=== PATIENT | female | born 1965 | race Caucasian/White ===

== ENCOUNTER 2019-06-30 10:25 | Emergency (ER) | payer OTHER ==
[~2019-06-30] VITALS: Ht 162.6 cm; Wt 59.0 kg
--- NOTE | 2019-06-30 10:37 | NUR ---
Pt bibhusband, anxious, nausea, started taking Remeron and Cymbalta . Pt aaox4, vss, breathing even and unlabored on room air w/ nad. Pt connected to the monitor.
[2019-06-30] MEDS ORDERED: LORAZEPAM INJ 2 MG/ML VIAL ONE ×2 (10:51→11:33)
[2019-06-30] MEDS ORDERED: ONDANSETRON 4 MG TAB.RAPDIS ONE (10:52)
[2019-06-30] MEDS ORDERED: ONDANSETRON 4 MG TAB.RAPDIS PO ONE (11:00)
[2019-06-30] MEDS ORDERED: LORAZEPAM INJ 2 MG/ML VIAL IM ONE ×2 (11:00→11:30)
[2019-06-30] MEDS ORDERED: METOCLOPRAMIDE HCL 10 MG/2 ML VIAL IM ONE (11:30)
[2019-06-30] MEDS ORDERED: METOCLOPRAMIDE HCL 10 MG/2 ML VIAL ONE (11:33)
--- NOTE | 2019-06-30 12:22 | NUR ---
Patient discharged to home in stable condition. Written and verbal after care instructions given. Patient verbalizes understanding of instruction.
[2019-06-30 12:23] VITALS: BP 123/81
== END 2019-06-30 12:23 | disposition home or self-care (01) ==
LOC: ER 10:34
DX: F41.9 Anxiety disorder, unspecified (principal); F32.9 Major depressive disorder, single episode, unspecified; Z88.1 Allergy status to other antibiotic agents
CPT/HCPCS: 96372 ×2; 99284; J2060 ×2; J2765; Q0162

== ENCOUNTER 2019-07-11 10:44 | Emergency (ER) | payer OTHER ==
[~2019-07-11] VITALS: Ht 162.6 cm; Wt 59.0 kg
--- NOTE | 2019-07-11 11:00 | NUR ---
PT CAME INTO THE ED C/O ANXIETY EVERY MORNING. PT AAOX4, VSS, BREATHING EVEN AND UNLABORED ON ROOM AIR W/ NAD NOTED. PT CONNECTED TO THE MONITOR AND POX.
--- NOTE | 2019-07-11 11:01 | NUR ---
AWAITING FOR MD AZAR
[2019-07-11] MEDS ORDERED: LORAZEPAM INJ 2 MG/ML VIAL IM ONE (11:30)
[2019-07-11] MEDS ORDERED: LORAZEPAM INJ 2 MG/ML VIAL ONE (11:32)
[2019-07-11 12:35] VITALS: BP 129/81
--- NOTE | 2019-07-11 12:35 | NUR ---
Patient discharged to home in stable condition. Written and verbal after care instructions given. Patient verbalizes understanding of instruction.
== END 2019-07-11 12:35 | disposition home or self-care (01) ==
LOC: ER 10:46
DX: F41.9 Anxiety disorder, unspecified (principal); F32.9 Major depressive disorder, single episode, unspecified; Z88.1 Allergy status to other antibiotic agents
CPT/HCPCS: 96372; 99284; J2060

== ENCOUNTER 2019-07-18 18:39 | Emergency (ER) | payer OTHER ==
[~2019-07-18] VITALS: Ht 162.6 cm; Wt 59.0 kg
[2019-07-18 18:51] VITALS: BP 112/72
[2019-07-18] MEDS ORDERED: LORAZEPAM 1 MG TABLET ONE (19:55)
[2019-07-18] MEDS ORDERED: LORAZEPAM 1 MG TABLET PO ONE (20:00)
--- NOTE | 2019-07-18 20:18 | NUR ---
Patient discharged to home in stable condition. Written and verbal after care instructions given. Patient verbalizes understanding of instruction.
== END 2019-07-18 20:18 | disposition home or self-care (01) ==
LOC: ER 18:40
DX: F41.9 Anxiety disorder, unspecified (principal); F32.9 Major depressive disorder, single episode, unspecified; Z88.1 Allergy status to other antibiotic agents

== ENCOUNTER 2019-07-23 11:02 | Emergency (ER) | payer OTHER ==
[~2019-07-23] VITALS: Ht 162.6 cm; Wt 59.0 kg
[2019-07-23] MEDS ORDERED: LORAZEPAM 1 MG TABLET PO ONE (11:30)
--- NOTE | 2019-07-23 11:30 | NUR ---
anxiety x today, requesting ativan. also c/o nausea, anxious about the job prospect. on room air, breathing evenly and unlabored. connected to the monitor and pulse ox. kept comfortable, will conitnue to monitor accordingly.
[2019-07-23] MEDS ORDERED: LORAZEPAM 1 MG TABLET ONE (11:33)
[2019-07-23 11:35] VITALS: BP 127/71
--- NOTE | 2019-07-23 11:37 | NUR ---
Patient discharged to home in stable condition. Written and verbal after care instructions given. Patient verbalizes understanding of instruction.
== END 2019-07-23 11:37 | disposition home or self-care (01) ==
LOC: ER 11:04
DX: F41.9 Anxiety disorder, unspecified (principal); F32.9 Major depressive disorder, single episode, unspecified; Z88.1 Allergy status to other antibiotic agents; Z60.2 Problems related to living alone

== ENCOUNTER 2019-07-30 12:26 | Emergency (ER) | payer OTHER ==
[~2019-07-30] VITALS: Ht 162.6 cm; Wt 61.2 kg
--- NOTE | 2019-07-30 13:30 | NUR ---
AICHA AHN AT BEDSIDE
[2019-07-30] MEDS ORDERED: LORAZEPAM 1 MG TABLET ONE (13:45)
--- NOTE | 2019-07-30 13:49 | NUR ---
Patient discharged to home in stable condition. Written and verbal after care instructions given. Patient verbalizes understanding of instruction.
[2019-07-30 13:50] VITALS: BP 141/79
[2019-07-30] MEDS ORDERED: LORAZEPAM 1 MG TABLET PO ONE (14:00)
== END 2019-07-30 13:52 | disposition home or self-care (01) ==
LOC: ER 12:27
DX: F41.9 Anxiety disorder, unspecified (principal); F17.200 Nicotine dependence, unspecified, uncomplicated; F32.9 Major depressive disorder, single episode, unspecified; Z76.5 Malingerer [conscious simulation]; Z88.1 Allergy status to other antibiotic agents; Z60.2 Problems related to living alone

== ENCOUNTER 2019-08-10 15:18 | Emergency (ER) | payer OTHER ==
[~2019-08-10] VITALS: Ht 162.6 cm; Wt 59.0 kg
[2019-08-10 16:00] VITALS: BP 112/70
[2019-08-10] MEDS ORDERED: LORAZEPAM 1 MG TABLET ONE (16:16)
[2019-08-10] MEDS ORDERED: LORAZEPAM 1 MG TABLET PO ONE (16:30)
== END 2019-08-10 16:25 | disposition home or self-care (01) ==
LOC: ER 15:23
DX: F41.9 Anxiety disorder, unspecified (principal); F32.9 Major depressive disorder, single episode, unspecified; F17.200 Nicotine dependence, unspecified, uncomplicated; R00.0 Tachycardia, unspecified; Z88.1 Allergy status to other antibiotic agents; Z60.2 Problems related to living alone

== ENCOUNTER 2019-09-06 17:23 | Emergency (ER) | payer OTHER ==
[~2019-09-06] VITALS: Ht 165.1 cm; Wt 54.4 kg
[2019-09-06] MEDS ORDERED: KETOROLAC TROMETHAMINE INJ 30 MG/ML VIAL IV ONE (18:00)
[2019-09-06] MEDS ORDERED: IV NS 0.9% 1,000 ML IV ONE (18:00)
[2019-09-06] MEDS ORDERED: METOCLOPRAMIDE HCL 10 MG/2 ML VIAL IV ONE (18:00)
[2019-09-06] MEDS ORDERED: diphenhydrAMINE HCL 50 MG/ML VIAL IV ONE (18:00)
[2019-09-06] MEDS ORDERED: diphenhydrAMINE HCL 50 MG/ML VIAL ONE (18:10)
[2019-09-06] MEDS ORDERED: KETOROLAC TROMETHAMINE INJ 30 MG/ML VIAL ONE (18:11)
[2019-09-06] MEDS ORDERED: METOCLOPRAMIDE HCL 10 MG/2 ML VIAL ONE (18:11)
--- NOTE | 2019-09-06 18:23 | NUR ---
came in to the er c/o migraine headache x 1 week, on room air breathuing evenly and unlabored, connected to the monitor and pulse ox, kept comfortable will continue to monitor accordingly.
[2019-09-06] MEDS ORDERED: HYDROMORPHONE 1 MG/1 ML DISP.SYRIN ONE (18:59)
[2019-09-06] MEDS ORDERED: HYDROMORPHONE 1 MG/1 ML DISP.SYRIN IV ONE (19:00)
--- NOTE | 2019-09-06 19:09 | NUR ---
report given to Nimo MOLINA for suyapa.
--- NOTE | 2019-09-06 20:10 | NUR ---
IV removed. Catheter intact and site benign. Pressure and 4x4 applied to site. No bleeding noted.Patient discharged to home in stable condition. Written and verbal after care instructions given. Patient verbalizes understanding of instruction. will provide the ride
[2019-09-06 20:14] VITALS: BP 143/78
== END 2019-09-06 20:10 | disposition home or self-care (01) ==
LOC: ER 17:28
DX: G43.909 Migraine, unspecified, not intractable, without status migrainosus (principal); R11.2 Nausea with vomiting, unspecified; F17.200 Nicotine dependence, unspecified, uncomplicated; Z88.1 Allergy status to other antibiotic agents; Z60.2 Problems related to living alone
CPT/HCPCS: 96361; 96374; 96375; 99283; J1170; J1200; J1885; J2765; J7030

== ENCOUNTER 2020-01-15 19:09 | Emergency (ER) | payer SELFPAY ==
[~2020-01-15] VITALS: Ht 162.6 cm; Wt 63.5 kg
[2020-01-15 19:31] VITALS: BP 116/99
--- NOTE | 2020-01-15 19:35 | NUR ---
PA AT BEDSIDE FOR EVAL
[2020-01-15] MEDS ORDERED: LORAZEPAM INJ 2 MG/ML VIAL ONE (19:50)
[2020-01-15] MEDS: LORAZEPAM INJ 2 MG/ML VIAL IM ONE (19:55)
--- NOTE | 2020-01-15 20:31 | NUR ---
Patient discharged to home in stable condition. Written and verbal after care instructions given. Patient verbalizes understanding of instruction. ambulatory with a steady gait
== END 2020-01-15 20:31 | disposition home or self-care (01) ==
LOC: ER 19:33
DX: F41.9 Anxiety disorder, unspecified (principal); F32.9 Major depressive disorder, single episode, unspecified; R00.2 Palpitations; R06.02 Shortness of breath; Z88.1 Allergy status to other antibiotic agents; Z60.2 Problems related to living alone
CPT/HCPCS: 96372; 99283; J2060

== ENCOUNTER 2020-02-13 11:21 | Emergency (ER) | payer OTHER ==
[~2020-02-13] VITALS: Ht 162.6 cm; Wt 74.4 kg
[2020-02-13 11:28] VITALS: BP 121/86
--- NOTE | 2020-02-13 11:30 | NUR ---
AT BEDSIDE FOR EVAL.
== END 2020-02-13 11:44 | disposition home or self-care (01) ==
LOC: ER 11:25
DX: F41.9 Anxiety disorder, unspecified (principal); F32.9 Major depressive disorder, single episode, unspecified; F17.200 Nicotine dependence, unspecified, uncomplicated; Z88.1 Allergy status to other antibiotic agents; Z60.2 Problems related to living alone

== ENCOUNTER 2020-03-20 17:44 | Emergency (ER) | payer OTHER ==
[~2020-03-20] VITALS: Ht 162.6 cm; Wt 68.0 kg
[2020-03-20 17:59] VITALS: BP 119/77
--- NOTE | 2020-03-20 18:31 | NUR ---
Patient discharged to home in stable condition. Written and verbal after care instructions given. Patient verbalizes understanding of instruction.
== END 2020-03-20 18:31 | disposition home or self-care (01) ==
LOC: ER 17:44
DX: J02.9 Acute pharyngitis, unspecified (principal); Z20.828 Contact with and (suspected) exposure to other viral communicable diseases; F41.9 Anxiety disorder, unspecified
CPT/HCPCS: 87070; 87880; 99283; C9803; U0003; 86403-TC

== ENCOUNTER 2020-04-02 12:20 | Emergency (ER) | payer OTHER ==
[~2020-04-02] VITALS: Ht 170.2 cm; Wt 73.0 kg
--- NOTE | 2020-04-02 12:34 | NUR ---
SELF PRESENTS TO ED C/O ANXIETY W/ MIGRAINE EXACERBATION. DENIES CHEST PAIN. NO NEURO DEFICIT NOTTED. STABLE VITALS. AWAITING MD AZAR.
--- NOTE | 2020-04-02 12:36 | NUR ---
DR DUMONT AT BEDSIDE FOR EVAL.
[2020-04-02] MEDS ORDERED: PROCHLORPERAZINE EDISYLATE 10 MG/2 ML VIAL ONE (12:46)
[2020-04-02] MEDS ORDERED: HYDROMORPHONE 1 MG/1 ML DISP.SYRIN ONE (12:46)
[2020-04-02] MEDS ORDERED: LORAZEPAM INJ 2 MG/ML VIAL ONE (12:47)
[2020-04-02] MEDS ORDERED: HYDROMORPHONE INJ 0.5 MG/0.5 ML SYRINGE IV ONE (13:00)
[2020-04-02] MEDS ORDERED: PROCHLORPERAZINE EDISYLATE 10 MG/2 ML VIAL IVP ONE (13:00)
[2020-04-02] MEDS ORDERED: LORAZEPAM INJ 2 MG/ML VIAL IV ONE (13:00)
[2020-04-02] MEDS ORDERED: IV NS 0.9% 1,000 ML IV ONE (13:00)
--- NOTE | 2020-04-02 13:54 | NUR ---
IV removed. Catheter intact and site benign. Pressure and 4x4 applied to site. No bleeding noted.Patient discharged to home in stable condition. Written and verbal after care instructions given. Patient verbalizes understanding of instruction.
[2020-04-02 13:55] VITALS: BP 112/63
== END 2020-04-02 13:55 | disposition home or self-care (01) ==
LOC: ER 12:20
DX: F41.9 Anxiety disorder, unspecified (principal); G43.909 Migraine, unspecified, not intractable, without status migrainosus; F32.9 Major depressive disorder, single episode, unspecified; Z88.1 Allergy status to other antibiotic agents; Z60.2 Problems related to living alone
CPT/HCPCS: 96361; 96374; 96375; 99284; J0780; J1170; J2060; J7030

== ENCOUNTER 2020-06-02 23:29 | Emergency (ER) | payer OTHER ==
[~2020-06-02] VITALS: Ht 162.6 cm; Wt 68.0 kg
[2020-06-02 23:56] VITALS: BP 133/77
--- NOTE | 2020-06-03 00:02 | NUR ---
PT AAOX4. AMBULATORY WITH STEADY GAIT. VSS. BIBS FOR C/O L LOWER TOOTHACHE AND ANXIETY. PLACED ON MONITOR AND PULSE OX,. AWAITING FOR MD FOR EVAL AND ORDERS.
[2020-06-03] MEDS ORDERED: LORAZEPAM 1 MG TABLET PO ONE (01:00)
[2020-06-03] MEDS ORDERED: LORAZEPAM 1 MG TABLET ONE (01:16)
== END 2020-06-03 01:31 | disposition home or self-care (01) ==
LOC: ER 23:29
DX: M27.69 Other endosseous dental implant failure (principal); F41.9 Anxiety disorder, unspecified; F32.9 Major depressive disorder, single episode, unspecified; Z88.1 Allergy status to other antibiotic agents; Z60.2 Problems related to living alone

== ENCOUNTER 2020-07-19 08:35 | Emergency (ER) | payer OTHER ==
[~2020-07-19] VITALS: Ht 162.6 cm; Wt 68.0 kg
[2020-07-19 08:55] VITALS: BP 123/56
[2020-07-19] MEDS ORDERED: LORAZEPAM 1 MG TABLET ONE (09:06)
--- NOTE | 2020-07-19 09:27 | NUR ---
Patient discharged to home in stable condition. Written and verbal after care instructions given. Patient verbalizes understanding of instruction.
[2020-07-19] MEDS ORDERED: LORAZEPAM 1 MG TABLET PO ONE (09:30)
== END 2020-07-19 09:27 | disposition home or self-care (01) ==
LOC: ER 08:38
DX: F41.9 Anxiety disorder, unspecified (principal); F32.9 Major depressive disorder, single episode, unspecified; Z88.1 Allergy status to other antibiotic agents; Z60.2 Problems related to living alone

== ENCOUNTER 2020-09-17 15:33 | Emergency (ER) | payer OTHER ==
[~2020-09-17] VITALS: Ht 162.6 cm; Wt 59.0 kg
--- NOTE | 2020-09-17 15:49 | NUR ---
BIBS FROM HOME TO ER BED 11. AAOX4. TACHYPNEIC. PT IS VERY ANXIOUS AND CRYING. AMBULATORY. CAME IN FOR MID STERNAL CHEST PAIN SINCE 01/19 SHARP NON RADIATING. PT ALSO COMPLAINING OG EPIGASTRIC AND LOWER BACK PAIN. MD AT BEDSIDE FOR EVAL. AWAITING ORDERS
--- NOTE | 2020-09-17 15:54 | NUR ---
DR BRAUN AT BEDSIDE
[2020-09-17] MEDS ORDERED: OLANZAPINE 10 MG VIAL IM ONE ×2 (16:00→16:02)
[2020-09-17 16:14] LABS: BASOPHILS # (AUTO) 0.2 /CMM (0.0-0.2); BASOPHILS % (AUTO) 1.1 % (0.0-2.0); EOSINOPHILS % (AUTO) 0.9 % (0.0-6.0); HEMATOCRIT 39 % (33-45); HEMOGLOBIN 12.5 g/dL (11.5-14.8); LYMPHOCYTES # (AUTO) 3.9 /CMM (0.8-4.8); LYMPHOCYTES % (AUTO) 26.4 % (20.0-44.0); MEAN CORPUSCULAR HGB CONC 32 g/dl (31.0-36.0); MEAN CORPUSCULAR VOLUME 82 fL (82-100); MONOCYTES # (AUTO) 1.1 /CMM (0.1-1.30); MONOCYTES % (AUTO) 7.5 % (2.0-12.0); NEUTROPHILS # (AUTO) 9.4 /CMM (1.8-8.9); NEUTROPHILS % (AUTO) 64.1 % (43.0-81.0); PLATELET COUNT (AUTO) 400 /CMM (150-450); RED BLOOD CELL COUNT(AUTO) 4.72 MIL/uL (4.0-5.2); WHITE BLOOD COUNT (AUTO) 14.6 K/uL (4.3-11.0)
[2020-09-17 16:27] LABS: CALCIUM, SERUM 9.8 mg/dL (8.5-10.1); CARBON DIOXIDE 19 mmol/L (21-32); CHLORIDE 101 mmol/L (98-107); CREATININE 1.1 mg/dL (0.6-1.3); GLUCOSE 97 mg/dL (74-106); POTASSIUM 3.6 mmol/L (3.5-5.1); SODIUM SERUM 138 mmol/L (136-145); UREA NITROGEN, BLOOD 11 mg/dL (7-18)
--- NOTE | 2020-09-17 17:32 | NUR ---
URINE SAMPLE COLLECTED AND SENT TO LAB
[2020-09-17 17:38] LABS: BILIRUBIN,URINE Negative (NEGATIVE); COLOR,URINE YELLOW (YELLOW); LEUKOCYTE ESTERASE ,URINE Negative (NEGATIVE); NITRITE, URINE Negative (NEGATIVE); PROTEIN,URINE Negative (NEGATIVE); UGLUCOSE Negative (NEGATIVE); UROBILINOGEN,URINE 0.2 EU/dL (0.2)
[2020-09-17 17:40] VITALS: BP 112/50
--- NOTE | 2020-09-17 17:40 | NUR ---
Patient discharged to home in stable condition. Written and verbal after care instructions given. Patient verbalizes understanding of instruction.
[2020-09-17 18:14] LABS: BACTERIA,URINE Rare /HPF (None Seen); SQUAMOUS EPITHELIAL CELL,UR Few /HPF (None Seen); WBC,URINE NONE SEEN /HPF (0-3)
== END 2020-09-17 17:42 | disposition home or self-care (01) ==
LOC: ER 15:36
DX: R06.4 Hyperventilation (principal); F41.0 Panic disorder [episodic paroxysmal anxiety]; M54.5 Low back pain; F32.9 Major depressive disorder, single episode, unspecified; R94.31 Abnormal electrocardiogram [ECG] [EKG]; Z88.1 Allergy status to other antibiotic agents; Z60.2 Problems related to living alone
CPT/HCPCS: 36415; 71045; 72131; 80048; 81001; 84484; 85025; 93005; 96372; 99285; J3490

== ENCOUNTER 2020-10-03 15:22 | Emergency (ER) | payer OTHER ==
[~2020-10-03] VITALS: Ht 162.6 cm; Wt 68.0 kg
--- NOTE | 2020-10-03 15:39 | NUR ---
Patient came in to the er c/o "I have anxiety been going on daily. Chest Pain today". On room air, very anxious. Connected to the monitor and pulse ox. kept comfortable, will continue to monitor accordingly.
[2020-10-03] MEDS ORDERED: OLANZAPINE 10 MG VIAL IM ONE ×2 (16:30→16:35)
[2020-10-03 17:45] VITALS: BP 106/59
--- NOTE | 2020-10-03 17:46 | NUR ---
Patient discharged to home in stable condition. Written and verbal after care instructions given. Patient verbalizes understanding of instruction.IV removed. Catheter intact and site benign. Pressure and 4x4 applied to site. No bleeding noted.
== END 2020-10-03 17:45 | disposition home or self-care (01) ==
LOC: ER 15:34
DX: F41.9 Anxiety disorder, unspecified (principal); F32.9 Major depressive disorder, single episode, unspecified; R94.31 Abnormal electrocardiogram [ECG] [EKG]; F17.200 Nicotine dependence, unspecified, uncomplicated; Z88.1 Allergy status to other antibiotic agents; Z60.2 Problems related to living alone
CPT/HCPCS: 93005; 96372; 99283; J3490

== ENCOUNTER 2021-04-03 18:59 | Emergency (ER) | payer OTHER ==
[~2021-04-03] VITALS: Ht 162.6 cm; Wt 67.6 kg
[2021-04-03 19:19] VITALS: BP 100/49
--- NOTE | 2021-04-03 20:33 | NUR ---
CALLED PT TO THE ROOM. NO ANSWER
--- NOTE | 2021-04-03 20:34 | NUR ---
PT LEFT WITHOUT BEING SEEB. MADE AWARE
== END 2021-04-03 20:36 | disposition left against medical advice (07) ==
LOC: ER 19:02
DX: Z53.21 Procedure and treatment not carried out due to patient leaving prior to being seen by health care provider (principal); F41.9 Anxiety disorder, unspecified; F32.9 Major depressive disorder, single episode, unspecified

== ENCOUNTER 2021-04-30 16:03 | Emergency (ER) | payer OTHER ==
[~2021-04-30] VITALS: Ht 162.6 cm; Wt 65.8 kg
--- NOTE | 2021-04-30 16:46 | NUR ---
The patient bibs for feeling anxious and heart palpating. Denies pain. In room air and denies SOB. Respiration regular and unlabored. Attached to the monitor. Warm blanket provided for comfort. Will continue to monitor the patient.
--- NOTE | 2021-04-30 16:47 | NUR ---
Dr Lloyd at the bedside.
[2021-04-30] MEDS ORDERED: LORAZEPAM 1 MG TABLET ONE (17:00)
[2021-04-30] MEDS ORDERED: LORAZEPAM 1 MG TABLET PO ONE (17:00)
--- NOTE | 2021-04-30 17:02 | NUR ---
X-RAY TECH AT THE BEDSIDE
[2021-04-30 17:10] LABS: BASOPHILS # (AUTO) 0.1 K/uL (0.0-0.2); BASOPHILS % (AUTO) 0.8 % (0.0-2.0); EOSINOPHILS % (AUTO) 0.4 % (0.0-6.0); HEMATOCRIT 37 % (33-45); HEMOGLOBIN 12.1 g/dL (11.5-14.8); LYMPHOCYTES % (AUTO) 20.8 % (20.0-44.0); MEAN CORPUSCULAR HGB CONC 33 g/dl (31.0-36.0); MEAN CORPUSCULAR VOLUME 83 fL (82-100); MONOCYTES # (AUTO) 0.7 K/uL (0.1-1.30); MONOCYTES % (AUTO) 6.9 % (2.0-12.0); NEUTROPHILS # (AUTO) 6.9 K/uL (1.8-8.9); NEUTROPHILS % (AUTO) 71.1 % (43.0-81.0); PLATELET COUNT (AUTO) 307 K/uL (150-450); RED BLOOD CELL COUNT(AUTO) 4.46 MIL/uL (4.0-5.2); WHITE BLOOD COUNT (AUTO) 9.8 K/uL (4.3-11.0)
[2021-04-30 17:18] LABS: CALCIUM, SERUM 9.1 mg/dL (8.5-10.1); CARBON DIOXIDE 27 mmol/L (21-32); CHLORIDE 107 mmol/L (98-107); CREATININE 0.9 mg/dL (0.6-1.3); GLUCOSE 86 mg/dL (74-106); POTASSIUM 3.3 mmol/L (3.5-5.1); SODIUM SERUM 145 mmol/L (136-145); UREA NITROGEN, BLOOD 16 mg/dL (7-18)
--- NOTE | 2021-04-30 17:47 | NUR ---
Patient does not wish to proceed with medical care recommended by Dr. Lloyd. Patient given information related to possible complications, up to and including , which could occur as a result of leaving the hospital at this time. Patient verbalizes understanding of risks involved due to leaving against medical advice. Patient has signed AMA form.
[2021-04-30 17:48] VITALS: BP 120/67
== END 2021-04-30 17:49 | disposition left against medical advice (07) ==
LOC: ER 16:08
DX: F41.9 Anxiety disorder, unspecified (principal); F32.9 Major depressive disorder, single episode, unspecified; F17.200 Nicotine dependence, unspecified, uncomplicated; Z88.1 Allergy status to other antibiotic agents; Z60.2 Problems related to living alone
CPT/HCPCS: 36415; 71045-TC; 80048-TC; 83735-TC; 84484-TC; 85025-TC

== ENCOUNTER 2021-05-31 13:57 | Emergency (ER) | payer OTHER ==
[~2021-05-31] VITALS: Ht 162.6 cm; Wt 65.3 kg
--- NOTE | 2021-05-31 14:15 | NUR ---
PT C/O ANXIETY ATTACK X 1 DAY. HX OF ANXIETY DISORDER. ADMITS HEADACHE. DENIES N/V. A&OX4, AMBULATORY, PULSES 2+ BILATERALLY, SKIN WARM AND DRY, PT IS SHAKING. ATTACHED TO MONITOR. VITALS ARE STABLE.
[2021-05-31] MEDS ORDERED: LORAZEPAM 1 MG TABLET ONE (14:59)
[2021-05-31] MEDS ORDERED: LORAZEPAM 1 MG TABLET PO ONE (15:00)
[2021-05-31] MEDS ORDERED: LORA-259 PO (15:08)
[2021-05-31 15:22] VITALS: BP 118/76
--- NOTE | 2021-05-31 15:22 | NUR ---
Patient discharged to home in stable condition. Written and verbal after care instructions given. Patient verbalizes understanding of instruction.
== END 2021-05-31 15:23 | disposition home or self-care (01) ==
LOC: ER 14:03
DX: F41.9 Anxiety disorder, unspecified (principal); F32.9 Major depressive disorder, single episode, unspecified; F17.200 Nicotine dependence, unspecified, uncomplicated; Z88.1 Allergy status to other antibiotic agents; Z79.899 Other long term (current) drug therapy

== ENCOUNTER 2021-06-04 16:49 | Emergency (ER) | payer OTHER ==
[~2021-06-04] VITALS: Ht 162.6 cm; Wt 65.8 kg
[~2021-06-04 16:49] MED LIST: LORA-259 PO
[2021-06-04 17:07] VITALS: BP 125/72
[2021-06-04] MEDS ORDERED: LORAZEPAM 1 MG TABLET ONE (17:24)
[2021-06-04] MEDS ORDERED: LORAZEPAM 1 MG TABLET PO ONE (17:30)
--- NOTE | 2021-06-04 17:32 | NUR ---
Patient discharged to home in stable condition. Written and verbal after care instructions given. Patient verbalizes understanding of instruction.
== END 2021-06-04 17:32 | disposition home or self-care (01) ==
LOC: ER 16:53
DX: F41.0 Panic disorder [episodic paroxysmal anxiety] (principal); F32.9 Major depressive disorder, single episode, unspecified; F17.200 Nicotine dependence, unspecified, uncomplicated; Z88.1 Allergy status to other antibiotic agents; Z79.899 Other long term (current) drug therapy

== ENCOUNTER 2021-06-05 15:24 | Emergency (ER) | payer OTHER ==
[~2021-06-05] VITALS: Ht 162.6 cm; Wt 65.8 kg
--- NOTE | 2021-06-05 15:40 | NUR ---
PT CAME TO ER C/O ANXIETY SINCE YESTERDAY. A&OX4. AMBULATORY. VITALS ARE STABLE. DENIES SI OR HI. AWAITING MD FOR EVAL.
--- NOTE | 2021-06-05 15:52 | NUR ---
PA AT BEDSIDE FOR EVAL
[2021-06-05] MEDS ORDERED: LORAZEPAM 1 MG TABLET PO ONE (16:00)
[2021-06-05] MEDS ORDERED: LORAZEPAM 1 MG TABLET ONE (16:02)
[2021-06-05 16:04] VITALS: BP 103/61
--- NOTE | 2021-06-05 16:07 | NUR ---
Patient discharged to home in stable condition. Written and verbal after care instructions given. Patient verbalizes understanding of instruction.
== END 2021-06-05 16:08 | disposition home or self-care (01) ==
LOC: ER 15:26
DX: F41.9 Anxiety disorder, unspecified (principal); F17.200 Nicotine dependence, unspecified, uncomplicated; F32.9 Major depressive disorder, single episode, unspecified; Z88.1 Allergy status to other antibiotic agents; Z79.899 Other long term (current) drug therapy

== ENCOUNTER 2021-06-23 12:52 | Emergency (ER) | payer OTHER ==
[~2021-06-23] VITALS: Ht 162.6 cm; Wt 62.1 kg
--- NOTE | 2021-06-23 12:57 | NUR ---
BIBS C/O ANXIETY ATTACK. PT STATED HER AXIETY WORSENED SINCE AND HE MEDICATION (PROZAC) IS NOT WORKING. PT IS A&OX4 VITAL SIGNS WITHIN NORMAL LIMITS.
[2021-06-23 13:14] VITALS: BP 132/68
--- NOTE | 2021-06-23 14:20 | NUR ---
THE PATIENT DOES NOT WISH TO PROCEED WITH THE TREATMENT
--- NOTE | 2021-06-23 14:56 | NUR ---
SS Consult: SS consult for Anxiety. Pt. Is a 56-year-old female. Pt. demonstrates adequate insight to the reason for hospitalization. Per pt., she was brought to hospital by a friend [Caitlin] due to Anxiety. Pt. was oriented x3, and alert. During interview, pt. was capable of following directions, made appropriate eye-contact, and was crying due to panic attacks. MARIA ISABEL explored pt.s Hx of mental health and substance abuse. Pt. reported Hx of Anxiety. Pt. denies SI/HI, AH/VH, paranoia or delusions, substance abuse. Per pt., she has been having anxiety for many years now. Pt. stated that it will go away for a day then comes back. Pt. mentioned she is taking medication for anxiety [Prozac]. Per pt., she drinks tea and goes on a walk to calm herself, but it does not help. Pt. reported that she comes to the ED when the panic attack starts to occur. Pt. mentioned that she is between psychiatrists. Pt.s next appointment with a psychiatrist is 06/30/2021. MARIA ISABEL explored pt.s living situation. Per pt., she lives at home with her two friends [Caitlin and [place] [address]]. Per pt., she reports having adequate support, but her family lives in [place] and [place]. Pt. reports that they talk often. MARIA ISABEL explored pt.s financial status. Per pt., she is currently not working and receives food stamps. Plan: MARIA ISABEL provided available counseling/mental health resources and pt. accepted. Per pt., she is willing to use those resources in the future. Once discharge, per pt., she can return to home [[place] [place] [address]]. Resources Provided: Counseling--[facility] [address] [facility] [place] [address] (Specializes in in-depth psychotherapy for emotional distress: anxiety, depression, interpersonal conflicts, life transitions, childhood abuse) [facility] [address] [place] [address] (Assist with solving problem marital difficulties, separation & divorce, aging parents, & grief, chronic & terminal illness) [facility] [address] [place], [place] [id number] (Deal with loss & grief, anxiety, marital difficulties) [facility] [address], [address] [place] [address] (Provide in-home mental services to people who are incapable of leaving their homes)
== END 2021-06-23 14:26 | disposition left against medical advice (07) ==
LOC: ER 12:55
DX: Z53.21 Procedure and treatment not carried out due to patient leaving prior to being seen by health care provider (principal); F41.9 Anxiety disorder, unspecified; F32.9 Major depressive disorder, single episode, unspecified

== ENCOUNTER 2021-07-05 13:43 | Emergency (ER) | payer OTHER ==
[~2021-07-05] VITALS: Ht 162.6 cm; Wt 62.1 kg
[2021-07-05] MEDS ORDERED: LORAZEPAM INJ 2 MG/ML VIAL IM ONE (15:00)
[2021-07-05] MEDS ORDERED: OLANZAPINE 10 MG VIAL IM ONE ×2 (15:00→15:22)
--- NOTE | 2021-07-05 15:00 | NUR ---
PT CAME TO ER C/O ANXIETY W/ HOT FLASHES SINCE TODAY. HX OF ANXIETY ATTACKS. AAOX4, RESPIRATIONS EVEN AND UNLABORED. DENIES SI.
[2021-07-05] MEDS ORDERED: LORAZEPAM INJ 2 MG/ML VIAL ONE (15:22)
--- NOTE | 2021-07-05 16:05 | NUR ---
Patient discharged to home in stable condition. Written and verbal after care instructions given. Patient verbalizes understanding of instruction. PT ambulatory with a steady gait
[2021-07-05 16:07] VITALS: BP 105/63
== END 2021-07-05 16:08 | disposition home or self-care (01) ==
LOC: ER 13:48
DX: F41.0 Panic disorder [episodic paroxysmal anxiety] (principal); F32.9 Major depressive disorder, single episode, unspecified; F17.200 Nicotine dependence, unspecified, uncomplicated; Z88.1 Allergy status to other antibiotic agents; Z79.899 Other long term (current) drug therapy
CPT/HCPCS: 96372 ×2; 99284; J2060; J3490

== ENCOUNTER 2021-07-31 15:51 | Emergency (ER) | payer OTHER ==
[~2021-07-31] VITALS: Ht 162.6 cm; Wt 63.5 kg
--- NOTE | 2021-07-31 16:15 | NUR ---
The patient bibs for feeling anxious since this morning. Denies SI/HI. In room air and denies SOB. Respiration regular and unlabored. Will continue to monitor the patient.
[2021-07-31] MEDS ORDERED: ALPRAZOLAM 0.5 MG TABLET ONE (16:27)
[2021-07-31] MEDS ORDERED: ALPRAZOLAM 0.5 MG TABLET PO ONE (16:30)
[2021-07-31 16:32] VITALS: BP 118/88
--- NOTE | 2021-07-31 16:32 | NUR ---
Patient discharged to home in stable condition. Written and verbal after care instructions given. Patient verbalizes understanding of instruction.
== END 2021-07-31 16:32 | disposition home or self-care (01) ==
LOC: ER 15:52
DX: F41.8 Other specified anxiety disorders (principal); F17.290 Nicotine dependence, other tobacco product, uncomplicated; Z79.899 Other long term (current) drug therapy; Z88.1 Allergy status to other antibiotic agents